=== PATIENT | male | born 1970 | race Caucasian/White ===

== ENCOUNTER 2024-08-06 02:42 | Emergency (ER) | payer OTHER ==
[2024-08-06 02:48] VITALS: BP 127/101; PULSE 81; RESP 18; TEMP 97.3
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
== END 2024-08-06 03:21 | disposition home or self-care (01) ==
LOC: EC 02:42
DX: Z02.83 Encounter for blood-alcohol and blood-drug test (principal); F17.200 Nicotine dependence, unspecified, uncomplicated; V89.2XXA Person injured in unspecified motor-vehicle accident, traffic, initial encounter; Y92.480 Sidewalk as the place of occurrence of the external cause
CPT/HCPCS: 99283